=== PATIENT | male | born 1960 ===

== ENCOUNTER 2021-12-19 13:02 | Emergency (ER) | payer OTHER, BC ==
[~2021-12-19] VITALS: Ht 175.3 cm; Wt 97.7 kg
[2021-12-19 13:15] VITALS: BP 134/86
[2021-12-19] MEDS ORDERED: ibuprofen 200mg tablet PO ONE (15:55)
== END 2021-12-19 16:45 | disposition home or self-care (01) ==
LOC: ER 13:03
DX: M19.09 Primary osteoarthritis, other specified site (principal); Z79.899 Other long term (current) drug therapy; Z90.49 Acquired absence of other specified parts of digestive tract
CPT/HCPCS: 72100; 99283